=== PATIENT | female | born 1990 | race African-American/Black ===

== ENCOUNTER 2019-08-17 00:56 | Inpatient (IN) | payer OTHER ==
[2019-08-17] MEDS ORDERED: BUTORPHANOL TARTRATE 1 MG/ML VIAL IVPB ONE ×2 (01:10→02:45)
[2019-08-17] MEDS ORDERED: BUTORPHANOL TARTRATE 1 MG/ML VIAL ONE (01:18)
[2019-08-17] MEDS ORDERED: PROMETHAZINE HCL 25 MG/1 ML VIAL ONE (01:19)
[2019-08-17 02:02] VITALS: BMI 28.0
[2019-08-17 02:02] LABS: BASO % 0.5 % (0-2.0); EOS % 0.1 % (0-4.5); HEMATOCRIT 39.8 % (32.4-45.2); HEMOGLOBIN 13.5 GM/dL (10.7-15.3); LYMPH % 17.8 % (8-40); MCH 31.7 pg (25.7-33.7); MCHC 33.8 g/dl (32.0-36.0); MEAN CELL VOLUME 93.5 fl (80-96); MONO % 6.9 % (3.8-10.2); NEUT % 74.7 % (42.8-82.8); PLATELET COUNT 196 K/MM3 (134-434); RBC 4.26 M/mm3 (3.60-5.2); RDW 13.4 % (11.6-15.6)
[2019-08-17 02:17] LABS: INR 0.88 (0.83-1.09); PROTHROMBIN TIME (PATIENT) 10.4 SEC (9.7-13.0)
[2019-08-17 02:19] LABS: ACTIVATED PTT 31.3 SECONDS (25.2-36.5)
[2019-08-17 02:23] LABS: BLOOD UREA NITROGEN 8.5 mg/dL (7-18); CALCIUM 9.1 mg/dL (8.5-10.1); CREATININE 0.7 mg/dL (0.55-1.3); POTASSIUM 3.9 mmol/L (3.5-5.1)
[2019-08-17] MEDS: ELECTROLYTE-148 SOLN 1,000 ML IV SCH (02:30)
[2019-08-17] MEDS ORDERED: PROMETHAZINE HCL 25 MG/1 ML VIAL IVPB ONE (02:45)
[2019-08-17] MEDS ORDERED: ELECTROLYTE-148 SOLN 500 ML IV ONE (02:45)
[2019-08-17] MEDS ORDERED: LIDOCAINE HCL 1% PRESERVATIVE FREE - 30ML VIAL ONE (03:17)
[2019-08-17] MEDS ORDERED: OXYTOCIN 20 UNITS in 0.9% NS 20 UNIT/1,000 ML INFUS.BAG IV ONE (03:18)
--- NOTE | 2019-08-17 04:23 | HP ---
Past Medical History - Admission Chief Complaint: Labor pain History of Present Illness: 29 yo , LMP 11/17/18, EDC 08/24/19, @ 39 weeks gestation, admitted for labor pain. Upon admission she was 5cm dilated. History Source: Patient Limitations to Obtaining History: No Limitations - Past Medical History ...: 1 ...Para: 0 ...Term: 0 ...: 0 ...Spon : 0 ...Induced : 0 ...Multiple Gestation: 0 ...LMP: 11/17/18 ... Weeks Gestation by Dates: 39.0 ...EDC by Dates: 08/24/19 ...EDC by Sono: 08/21/19 - Past Surgical History Past Surgical History: Yes: None Hx Myomectomy: No Hx Transabdominal Cerclage: No - Smoking History Smoking history: Never smoked Have you smoked in the past 12 months: No - Alcohol/Substance Use Hx Alcohol Use: No History of Substance Use: reports: None - Social History Usual Living Arrangement: Yes: With Significant Other History of Recent Travel: No Home Medications - Allergies Allergies/Adverse Reactions: Allergies Allergy/AdvReac Type Severity Reaction Status Date / Time No Known Allergies Allergy Verified 08/17/19 01:34 - Home Medications Home Medications: Ambulatory Orders Vitamins (Sjr) - 1 tab PO DAILY 08/16/19 Review of Systems - Review of Systems Constitutional: reports: No Symptoms Eyes: reports: No Symptoms HENT: reports: No Symptoms Neck: reports: No Symptoms Cardiovascular: reports: No Symptoms Respiratory: reports: No Symptoms Gastrointestinal: reports: No Symptoms Genitourinary: reports: Pain Breasts: reports: No Symptoms Reported Musculoskeletal: reports: No Symptoms Psychiatric: reports: No Symptoms Pain Intensity: 7 Physical Exam - Maternity Vital Signs: Vital Signs Temperature 98.3 F 08/17/19 02:00 Pulse Rate 74 08/17/19 03:00 Respiratory Rate 20 08/17/19 03:00 Blood Pressure 136/79 08/17/19 03:00 O2 Sat by Pulse Oximetry (%) Constitutional: Yes: No Distress Eyes: Yes: Conjunctiva Clear HENT: Yes: Atraumatic Neck: Yes: Supple Cardiovascular: Yes: Regular Rate and Rhythm Lungs: Clear to auscultation - Abdominal Exam/OB Number of Fetuses: Single Presentation: Vertex Contractions: Yes Intensity: Mod/Strong - Vaginal Exam/OB Vaginal Bleediing: No Dilatation (cm): 5 Presentation: Vertex/Position Station: -2 - Physical Exam Musculoskeletal: Yes: WNL Extremities: Yes: WNL ...Motor Strength: WNL Psychiatric: Yes: Alert, Oriented - Labs Lab Results: CBC, BMP 08/17/19 01:35 08/17/19 01:35 Problem List - Problems (1) 39 weeks gestation of Problems reviewed: Yes Code(s): Z3A.39 - 39 WEEKS GESTATION OF Assessment/Plan 39 weeks gestation Active labor Admit to L&D Anticipate
[2019-08-17] MEDS: DEXTROSE 5%-LACTATED RINGERS 1,000 ML IV SCH (04:30)
[2019-08-17] MEDS ORDERED: OXYTOCIN 30 UNITS in 0.9% NS 30 UNIT/500 ML INFUS.BAG IVPB ONE ×2 (04:35→06:57)
[2019-08-17] MEDS ORDERED: BISACODYL 10 MG SUPP.RECT RC PRN (05:59)
[2019-08-17] MEDS ORDERED: METHYLERGONOVINE MALEATE 0.2 MG/1 ML AMP IM PRN (05:59)
[2019-08-17] MEDS ORDERED: WITCH HAZEL 50% (TUCKS) 40 PAD/JAR PAD TP PRN (05:59)
--- NOTE | 2019-08-17 06:04 | PN ---
Delivery - Delivery Vaginal Delivery: Spontaneous Type of Anesthesia: Local Episiotomy/Laceration: Midline EBL (cc): 300 Delivery, Single - Feeding Plan Initial Plan: Elected not to breastfeed exclusively throughout hospitalization Remarks - Remarks Remarks: Normal spontaneous vaginal delivery of a live infant boy over midline episiotomy. Nose / Oropharynx suctioned @ perineum. Nuchal cord x 1 clamped and cut. Baby handed to nurse. Placenta expelled spontaneously intact. Midline episiotomy repaired with 2.0 Chromic.
[2019-08-17] MEDS: OXYTOCIN 20 UNITS in 0.9% NS 20 UNIT/1,000 ML INFUS.BAG IV SCH (07:45)
[2019-08-17] MEDS: FERROUS SO4 325 MG TABLET (FP) PO SCH ×2 (08:54→17:23)
[2019-08-17] MEDS: BENZOCAINE 28 GM HEMORRHOIDAL OINTMENT TP PRN (08:55)
[2019-08-17] MEDS: BENZOCAINE 20% 57 GM BOTTLE TP PRN (08:56)
[2019-08-17] MEDS: PRENATAL VITAMINS W/ FOLIC ACID TABLET (FP) PO SCH (09:50)
[2019-08-17] MEDS: IBUPROFEN 600 MG TABLET (FP) PO PRN (22:04)
[2019-08-17] MEDS: ACETAMINOPHEN 325 MG TABLET (FP) PO PRN (22:05)
--- NOTE | 2019-08-18 05:51 | PN ---
Post Progress Note - Subjective Subjective: no complains of cramps Post Day: 1 Type of Delivery: Vital Signs: Vital Signs Temperature 97.7 F 08/18/19 01:34 Pulse Rate 89 08/18/19 01:34 Respiratory Rate 20 08/18/19 01:34 Blood Pressure 125/65 08/18/19 01:34 O2 Sat by Pulse Oximetry (%) Breast Exam: Yes: Soft, Other (BF ). No: Engorged Uterus: Yes: Fundus Firm, Fundus below umbilicus, Non-tender Lochia: Yes: Rubra Lochia, amount: Moderate Extremities: Yes: Calves non-tender Perineum: Yes: Intact, Episiotomy (perineal soreness ) Activity: Ambulating - Labs Labs: CBC WBC 13.0 K/mm3 (4.0-10.0) H 08/17/19 01:35 RBC 4.26 M/mm3 (3.60-5.2) 08/17/19 01:35 Hgb 13.5 GM/dL (10.7-15.3) 08/17/19 01:35 Hct 39.8 % (32.4-45.2) 08/17/19 01:35 MCV 93.5 fl (80-96) 08/17/19 01:35 MCH 31.7 pg (25.7-33.7) 08/17/19 01:35 MCHC 33.8 g/dl (32.0-36.0) 08/17/19 01:35 RDW 13.4 % (11.6-15.6) 08/17/19 01:35 Plt Count 196 K/MM3 (134-434) 08/17/19 01:35 MPV 10.0 fl (7.5-11.1) 08/17/19 01:35 Absolute Neuts (auto) 9.7 K/mm3 (1.5-8.0) H 08/17/19 01:35 Neutrophils % 74.7 % (42.8-82.8) 08/17/19 01:35 Lymphocytes % 17.8 % (8-40) 08/17/19 01:35 Monocytes % 6.9 % (3.8-10.2) 08/17/19 01:35 Eosinophils % 0.1 % (0-4.5) 08/17/19 01:35 Basophils % 0.5 % (0-2.0) 08/17/19 01:35 Nucleated RBC % 0 % (0-0) 08/17/19 01:35 Problem List - Problems (1) care and examination of lactating mother Code(s): Z39.1 - ENCOUNTER FOR CARE AND EXAMINATION OF LACTATING MOTHER Assessment/Plan stable plan ct pp care repeat cbc today discharge tomorrow
[2019-08-18] MEDS: DEXTROSE 5%-LACTATED RINGERS 1,000 ML IV SCH (06:52)
[2019-08-18] MEDS: OXYTOCIN 20 UNITS in 0.9% NS 20 UNIT/1,000 ML INFUS.BAG IV SCH (06:53)
[2019-08-18] MEDS: ELECTROLYTE-148 SOLN 1,000 ML IV SCH (06:53)
[2019-08-18] MEDS: FERROUS SO4 325 MG TABLET (FP) PO SCH ×2 (08:42→17:22)
[2019-08-18 09:03] LABS: BASO % 0.5 % (0-2.0); EOS % 0.8 % (0-4.5); HEMATOCRIT 32.5 % (32.4-45.2); HEMOGLOBIN 10.9 GM/dL (10.7-15.3); LYMPH % 22.2 % (8-40); MCH 31.8 pg (25.7-33.7); MCHC 33.4 g/dl (32.0-36.0); MEAN PLT VOLUME 9.2 fl (7.5-11.1); MONO % 7.8 % (3.8-10.2); NEUT % 68.7 % (42.8-82.8); PLATELET COUNT 169 K/MM3 (134-434); RBC 3.42 M/mm3 (3.60-5.2); RDW 13.6 % (11.6-15.6); WHITE BLOOD COUNT 14.6 K/mm3 (4.0-10.0)
[2019-08-18] MEDS: PRENATAL VITAMINS W/ FOLIC ACID TABLET (FP) PO SCH (10:17)
[2019-08-18] MEDS: IBUPROFEN 600 MG TABLET (FP) PO PRN ×2 (10:41→22:28)
[2019-08-18] MEDS: ACETAMINOPHEN 325 MG TABLET (FP) PO PRN ×2 (10:42→22:29)
[2019-08-18 21:31] VITALS: PULSE 72
[2019-08-18] MEDS ORDERED: SENNOSIDES/DOCUSATE COMBO (SENNA PLUS) TABLET (UD) PO PRN (22:00)
[2019-08-19] MEDS: FERROUS SO4 325 MG TABLET (FP) PO SCH ×2 (08:11→18:11)
[2019-08-19] MEDS: PRENATAL VITAMINS W/ FOLIC ACID TABLET (FP) PO SCH (10:27)
[2019-08-19 11:10] VITALS: BP 130/74; TEMP 98
--- NOTE | 2019-08-19 14:25 | DS ---
Physical Exam-WATCH[employer] Vital Signs: Vital Signs Temperature 98.0 F 08/19/19 10:00 Pulse Rate 72 08/19/19 10:00 Respiratory Rate 18 08/19/19 10:00 Blood Pressure 130/74 08/19/19 10:00 O2 Sat by Pulse Oximetry (%) Constitutional: Yes: Well Nourished, Other (no cramps) Eyes: Yes: WNL HENT: Yes: WNL Neck: Yes: WNL Cardiovascular: Yes: WNL Respiratory: Yes: WNL Gastrointestinal: Yes: WNL ...Rectal Exam: Yes: Deferred Renal/: Yes: WNL. No: CVA Tenderness - Left, CVA Tenderness - Right ....Post : Yes: Uterus firm, Moderate lochia rubra (episiotomy healing) Breast(s): Yes: WNL (soft , BF), Gynecomastia Extremities: Yes: WNL. No: Calf Tenderness Edema: Yes Edema: LLE: 1+, RLE: 1+ Integumentary: Yes: WNL Neurological: Yes: WNL, Alert, Oriented ...Motor Strength: WNL Psychiatric: Yes: WNL, Alert, Oriented Labs: CBC, BMP 08/18/19 08:48 08/17/19 01:35 Delivery - Delivery Vaginal Delivery: Spontaneous Type of Anesthesia: Local Episiotomy/Laceration: Midline EBL (cc): 300 Delivery, Single - Stages of Labor Date 1st Stage Initiatied: 08/16/19 Time 1st Stage Initiated: 23:00 Date 2nd Stage Initiated: 08/17/19 Time 2nd Stage Initiated: 05:00 Date of Delivery: 08/17/19 Time of Delivery: 05:39 Time Placenta Delivered: 05:40 - Condition of Music Sound Light Technician/Tipple Operator Present: No Infant Gender: Male Weight: 6 lb 4 oz Position: Right, OA Total Hours ROM (Hrs/Mins): 1h9m - 1 Minute Total Score: 9 5 Minutes Total Score: 9 - [place] Feeding Plan Initial Plan: Elected not to breastfeed exclusively throughout hospitalization Remarks - Remarks Remarks: pp course uneventful anemia addressed discharge today Discharge Summary Problems reviewed: Yes Reason For Visit: LABOR ADMIT Current Active Problems 39 weeks gestation of (Acute) Normal spontaneous vaginal delivery (Acute) care and examination of lactating mother (Acute) Condition: Stable - Instructions Diet, Activity, Other Instructions: Discharge Instructions * Out of Bed * * Regular Diet * Kallie Care * Avoid sex for 6 weeks * rtc 3 weeks for pp visit , call [phone] for appt If you experience excessive bleeding or fever over 101 degrees, call doctor, the clinic or go to the Emergency Room. Referrals: Andrey Link MD [Staff Physician] - Disposition: HOME - Home Medications Comprehensive Discharge Medication List: Ambulatory Orders Vitamins (Sjr) - 1 tab PO DAILY 08/16/19 Acetaminophen [Tylenol .Regular Strength -] 650 mg PO Q3H PRN tablet 08/19/19 Benzocaine [Americaine 20% Arnett -] 1 spray TP PRN PRN bottle 08/19/19 Ferrous Sulfate [Feosol] 325 mg PO DAILY #30 tab 08/19/19 Ibuprofen [Motrin -] 200 mg PO Q4H PRN tablet 08/19/19 Vitamins (Sjr) - 1 tab PO DAILY #60 tablet 08/19/19 Witch Maribel 50% (Tucks) [Tucks Pads -] 1 pad TP PRN PRN pad 08/19/19 Prescription Drug Monitoring Program (I-STOP) results: I-STOP reviewed and no issues identified
[2019-08-19] MEDS: BENZOCAINE 28 GM HEMORRHOIDAL OINTMENT TP PRN (15:17)
[2019-08-19] MEDS: BENZOCAINE 20% 57 GM BOTTLE TP PRN (15:17)
[2019-08-19] MEDS: OXYTOCIN 20 UNITS in 0.9% NS 20 UNIT/1,000 ML INFUS.BAG IV SCH (18:13)
[2019-08-19] MEDS: ELECTROLYTE-148 SOLN 1,000 ML IV SCH (18:14)
[2019-08-19] MEDS: DEXTROSE 5%-LACTATED RINGERS 1,000 ML IV SCH (18:14)
== END 2019-08-19 20:00 | disposition home or self-care (01) | DRG 560 ==
LOC: JDEL 00:56 → JLDR 01:05 → J3W 07:45
PROVIDERS: ADMIT Obstetrics & Gynecology; ATTEND Obstetrics & Gynecology
PROC: 10E0XZZ Delivery of Products of Conception, External Approach (ICD-10-PCS; principal; 2019-08-17)
PROC: 0W8NXZZ Division of Female Perineum, External Approach (ICD-10-PCS; 2019-08-17)
DX: O99.02 Anemia complicating childbirth (principal); Z37.0 Single live birth
CPT/HCPCS: 36415; 59409; 80048; 85025; 85610; 85730; 86593; 86850; 86900; 86901